=== PATIENT | male | born 2000 | race Caucasian/White ===

== ENCOUNTER 2019-03-30 11:10 | Emergency (ER) | payer BC ==
[2019-03-30 11:34] VITALS: BP 105/53
--- NOTE | 2019-03-30 11:46 | UC ---
Hand/Wrist HPI - HPI Summary HPI Summary: Left thumb injury. Last night while bowling pt caught his left thumb in the hole. Pain, swelling and mild bruising. - History Of Current Complaint Chief Complaint: UCUpperExtremity Stated Complaint: LEFT THUMB INJURY Time Seen by Provider: 03/30/19 11:44 Hx Obtained From: Patient ?: No Onset/Duration: Sudden Onset, Lasting Hours Severity Initially: Severe Severity Currently: Severe Pain Intensity: 7 Aggravating Factor(s): Movement Alleviating Factor(s): Ice Associated Signs And Symptoms: Positive: Swelling, Bruising, Weakness - Allergies/Home Medications Allergies/Adverse Reactions: Allergies Allergy/AdvReac Type Severity Reaction Status Date / Time No Known Allergies Allergy Verified 03/30/19 11:26 Home Medications: Home Medications NK [No Home Medications Reported] 03/30/19 [History Confirmed 03/30/19] PMH/Surg Hx/FS Hx/Imm Hx Previously Healthy: Yes - Surgical History Surgical History: Yes Surgery Procedure, Year, and Place: ear tubes X 3. skin lesion excisions - Family History Known Family History: Negative: Hypertension - Social History Alcohol Use: None Substance Use Type: None Smoking Status (MU): Never Smoked Tobacco Review of Systems All Other Systems Reviewed And Are Negative: Yes Musculoskeletal: Positive: Arthralgia, Myalgia Is Patient Immunocompromised?: No Physical Exam Triage Information Reviewed: Yes Appearance: Well-Appearing, Well-Nourished, Pain Distress Vital Signs: Initial Vital Signs Temp 98.3 F 03/30/19 11:27 Pulse 64 03/30/19 11:27 Resp 16 03/30/19 11:27 BP 105/53 03/30/19 11:27 Pulse Ox 99 03/30/19 11:27 Vital Signs Reviewed: Yes Eye Exam: Normal ENT Exam: Normal Respiratory Exam: Normal Cardiovascular Exam: Normal Abdominal Exam: Normal Musculoskeletal: Positive: 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, ROM Limited @ - in affected thumb, Edema @ - mild Skin: Positive: Other - bruising Hand/Wrist Course/Dx - Course Course Of Treatment: hx obtained, exam performed ,meds reviewed, xray negative, given a splint and educated on care of sprains and strains - Differential Dx/Diagnosis Differential Diagnosis/HQI/PQRI: Fracture, Sprain, Strain Provider Diagnosis: Strain of thumb, left Discharge ED - Sign-Out/Discharge Documenting (check all that apply): Patient Departure All imaging exams completed and their final reports reviewed: No Studies - Discharge Plan Condition: Stable Disposition: HOME Patient Education Materials: [facility] [place] (ED) Referrals: No Primary Care Phys,NOPCP [Primary Care Provider] - Additional Instructions: 1. use the splint for support, 2. 2 x a day soak in warm epsom salt soak. 3. Should improve in the next 7 days with rest and care 4. FOllow up if not improving. - Billing Disposition and Condition Condition: STABLE Disposition: Home
== END 2019-03-30 12:24 | disposition home or self-care (01) ==
LOC: UCCORT 11:10
DX: S56.312A Strain of extensor or abductor muscles, fascia and tendons of left thumb at forearm level, initial encounter (principal); W23.1XXA Caught, crushed, jammed, or pinched between stationary objects, initial encounter; Y93.54 Activity, bowling; Y92.9 Unspecified place or not applicable
CPT/HCPCS: 99203; G0463

== ENCOUNTER 2019-05-06 13:14 | Emergency (ER) | payer BC ==
[2019-05-06 13:30] VITALS: BP 110/59
--- NOTE | 2019-05-06 13:37 | UC ---
Throat Pain/Nasal [place] HPI - HPI Summary HPI Summary: 19yo male presenting with sore throat, headache, nausea since last night at 1900. Patient also notes nasal congestion. Denies cough. Denies fever and chills. Denies body aches. Denies vomiting and abdominal pain. Taking ibuprofen for symptom relief. Staets he might have been exposed to the flu last week by his brother. - History of Current Complaint Chief Complaint: UCHeadache Stated Complaint: HEADACHE NAUSEA CHILLS Hx Obtained From: Patient Pain Intensity: 6 Pain Scale Used: 0-10 Numeric - Allergies/Home Medications Allergies/Adverse Reactions: Allergies Allergy/AdvReac Type Severity Reaction Status Date / Time No Known Allergies Allergy Verified 05/06/19 13:27 Home Medications: Home Medications Ibuprofen TAB* [Motrin TAB* 600 MG] 600 mg PO Q6H PRN 05/06/19 [History Confirmed 05/06/19] PMH/Surg Hx/FS Hx/Imm Hx Previously Healthy: Yes - Surgical History Surgical History: Yes Surgery Procedure, Year, and Place: ear tubes X 3. skin lesion excisions - Family History Known Family History: Negative: Hypertension - Social History Alcohol Use: None Substance Use Type: None Smoking Status (MU): Never Smoked Tobacco Review of Systems All Other Systems Reviewed And Are Negative: Yes Constitutional: Positive: Negative ENT: Positive: Sore Throat, Sinus Congestion Respiratory: Positive: Negative Cardiovascular: Positive: Negative Gastrointestinal: Positive: Nausea Musculoskeletal: Positive: Negative Neurological/Mental Status: Positive: Headache Physical Exam - Summary Physical Exam Summary: Vital Signs Reviewed: Yes A+Ox3, no distress Eyes: Conjunctiva Clear ENT: Hearing grossly normal, TM x 2 clear, moist, uvula midline, no exudate, + mild pharyngeal erythema Neck: Positive: Supple Respiratory: Positive: No respiratory distress, No accessory muscle use + CTA throughout no w/r Cardiovascular: RRR nl s1, s2 no m/r Musculoskeletal Exam: AGUILLON x 4 without difficulty Neurological: Positive: Alert Psychological: Positive: age appropriate behavior Skin: Positive: no rash, no ecchymosis Vital Signs: Initial Vital Signs Temp 97.7 F 05/06/19 13:27 Pulse 62 05/06/19 13:27 Resp 14 05/06/19 13:27 BP 110/59 05/06/19 13:27 Pulse Ox 99 05/06/19 13:27 Lab Results 05/06/19 05/06/19 Range/Units 13:34 13:52 Influenza A (Rapid) Negative (Negative) Influenza B (Rapid) Negative (Negative) Group A Strep Rapid Negative (Negative) Throat Pain/Nasal Course/Dx - Course Course Of Treatment: Negative rapid strep and flu tests. Patient received zofran here for nausea. I discussed viral illness with patient and educated on symptomatic treatment. Instructed to follow up with pcp or [facility] if symptoms worsen or persist. Patient voiced understanding and agreed with treatment plan. - Differential Dx/Diagnosis Differential Diagnosis/HQI/PQRI: Influenza, Pharyngitis, Tonsillitis, URI Provider Diagnosis: Flu-like symptoms Discharge ED - Sign-Out/Discharge Documenting (check all that apply): Patient Departure All imaging exams completed and their final reports reviewed: No Studies - Discharge Plan Condition: Stable Disposition: HOME Patient Education Materials: Viral Syndrome (ED) Referrals: Care [facility] [Outside] Additional Instructions: Your strep and flu tests were negative today. Your symptoms are likely caused by a virus and should resolve without treatment. You may take over the counter cold and flu medication for symptom relief. Get plenty of rest and fluids. Follow up with the [facility] listed below if symptoms have not improved within 7-10 days. - Billing Disposition and Condition Condition: STABLE Disposition: Home
[2019-05-06] MEDS ORDERED: Ondansetron ODT TAB* 4 MG PO ONE (13:39)
[2019-05-06 14:04] LABS: Influenza A Molecular Negative (Negative); Influenza B Molecular Negative (Negative)
== END 2019-05-06 14:14 | disposition home or self-care (01) ==
LOC: UCCORT 13:14
DX: J02.9 Acute pharyngitis, unspecified (principal); R09.81 Nasal congestion; R51 Headache; R11.0 Nausea
CPT/HCPCS: 87651; 99212; A9270-GY; G0463